=== PATIENT | male | born 1970 | race Caucasian/White ===

== ENCOUNTER 2017-01-02 16:00 | Emergency (ER) | payer OTHER ==
[2017-01-02 16:12] VITALS: PULSE 74; TEMP 97.9
--- NOTE | 2017-01-02 16:24 | EDPHY ---
H & P Time Seen by Provider: 01/02/17 16:03 HPI/ROS: HPI Left foot injury. 46-year-old male by private vehicle. This patient was importantly organ yesterday evening. He was paddle boarding. He came to a doctor. He was discussed mountain the paddle board when he slipped and caught his left foot awkwardly. He complains of pain and swelling to the lateral distal aspect of the left foot. He also sustained a small laceration to the ventral distal aspect of the foot. He has been able to ambulate on it but it is causing him pain to bear weight. His last tetanus shot was 2 years ago. He denies any other injury or complaint. He was not wearing a shoe when this injury occurred. He was in brackish water. ROS: Constitutional: No fever, no chills. No weakness. Eyes: No discharge. No changes in vision. ENT: No sore throat. No nasal congestion or rhinorrhea. Respiratory: No cough. No shortness of breath. Cardiac: No chest pain, no palpitations. Gastrointestinal: No abdominal pain, no vomiting, no diarrhea. Genitourinary: No hematuria. No dysuria or increased frequency with urination. Musculoskeletal: No back pain. No neck pain. No myalgias or arthralgias. Skin: No rashes. Neurological: No headache. No focal weakness or altered sensation. Past medical history: Alcohol abuse. Shoulder surgery. Social history: As above. Has a girlfriend. Nonsmoker. Physical Exam: General Appearance: Alert, no distress. This patient is responding to questions appropriately and in full sentences. This patient appears well- hydrated and well-nourished. Eyes: Pupils equal and round no pallor or injection. No lid edema, erythema or injection. Left foot and ankle exam: He has some tenderness on palpation of the ventral aspect lateral distal soft tissues over the metatarsophalangeal joints. There is some diffuse swelling to this area. No erythema or warmth. There is a 1.5 cm linear laceration which appears superficial in nature. No associated erythema or warmth, drainage of purulent fluid associated with this wound. No foreign body on exploration of this laceration. There is no tenderness specifically on palpation of the 5th metatarsal base. The remaining bony aspects of the foot are nontender on palpation. No significant pain elicited on axial compression of all digits. The ankle is unremarkable on gross inspection and palpation of the malleoli. No tenderness on palpation of the proximal fibula. The left foot is neurovascularly intact. Neurological: Motor sensory function is grossly intact. Cranial nerves are normal. Gait is slightly antalgic favoring the left foot. Skin: Warm and dry, no rashes. Musculoskeletal: Neck is supple and nontender. Extremities are symmetrical. All joints range without pain or impingement. Psychiatric: No agitation. No depression. Database: EKG: Imaging: Left foot x-ray series: Negative for fracture, subluxation, dislocation. Interpreted by me. Procedures: Emergency department course: Patient given 600 mg of ibuprofen. Tetanus status is up-to-date. He was sent for appropriate imaging. 4:50 p.m., patient re-evaluated. Results of x-rays discussed. My concern for early infection was discussed. He was not wearing shoes. He was in brackish water. I will start him on doxycycline in the emergency department to cover for vibrio another possible pathogens. The wound was cleansed and dressed appropriately. I instructed him on weight-bearing only as tolerated. He has crutches with him. Rest, and elevation as much as possible. He will follow up with his primary care physician on Wednesday for re-evaluation. Strict return to emergency department precautions were reviewed with him thoroughly. All of his questions were answered. He was discharged in good condition. Differential Diagnosis: The differential diagnosis on this patient includes but is not limited to left foot fracture, subluxation, dislocation, left foot infection. This represents a partial list of diagnoses considered. These considerations are based on history, physical exam, past history, reassessment and diagnostic testing. Smoking Status: Never smoked Constitutional: Initial Vital Signs Temperature (C) 36.6 C 01/02/17 16:02 Heart Rate 74 01/02/17 16:02 Respiratory Rate 16 01/02/17 16:02 Blood Pressure 121/81 H 01/02/17 16:02 O2 Sat (%) 94 01/02/17 16:02 O2 Delivery Mode Room Air Allergies/Adverse Reactions: No Known Allergies Allergy (Verified 01/02/17 16:12) Home Medications: Medication Instructions Recorded Doxycycline Hyclate 100 mg PO BID #20 tab 01/02/17 Multivitamin 01/02/17 Medical Decision Making - Diagnostics Imaging Results: Imaging Impressions Foot X-Ray 01/02/17 16:17 Impression: Negative. No fracture, foreign body, or evidence of osteomyelitis. Departure - Departure Disposition: Home, Routine, Self-Care Clinical Impression: Injury of left foot, Sprain of left foot, Laceration of left foot Condition: Good Instructions: Laceration (ED), Foot Sprain (ED) Additional Instructions: Read and follow provided instructions. Follow-up with a primary care physician which I have provided to you on Wednesday or Wednesday of this coming week for re-evaluation. Take antibiotic as prescribed through entire course of treatment. Ibuprofen dosin mg every 6 hours with meals for the next 3 days only. Return to the emergency department for worsening swelling, pain, redness, blisters or other serious concerns. Referrals: [facility] [Outside] - As per Instructions Prescriptions: Doxycycline Hyclate 100 mg PO BID #20 tab
[2017-01-02] MEDS ORDERED: DOXYCYCLINE HYCLATE 100 MG CAP/TAB PO ONE (16:51)
[2017-01-02 17:06] VITALS: BP 135/62; RESP 18; O2SAT 97
== END 2017-01-02 17:05 | disposition home or self-care (01) ==
LOC: CED 16:00
DX: S93.602A Unspecified sprain of left foot, initial encounter (principal); S91.312A Laceration without foreign body, left foot, initial encounter; W18.40XA Slipping, tripping and stumbling without falling, unspecified, initial encounter
CPT/HCPCS: 73630-PO